=== PATIENT | female | born 1995 | race Caucasian/White ===

== ENCOUNTER 2019-12-22 17:44 | Emergency (ER) | payer OTHER ==
[~2019-12-22] VITALS: Ht 175.3 cm; Wt 156.5 kg
[2019-12-22] MEDS ORDERED: ZESTRIL5 MG (17:52)
== END 2019-12-22 23:43 | disposition home or self-care (01) ==
LOC: ER 17:44
DX: R51 Headache (principal)

== ENCOUNTER 2024-09-01 03:42 | Emergency (ER) | payer OTHER ==
[~2024-09-01] VITALS: Ht 152.4 cm; Wt 81.6 kg
[~2024-09-01 03:42] MED LIST: ZESTRIL5 MG
[2024-09-01 09:36] LABS: HEMATOCRIT 33.3 % (36.0-45.00); HEMOGLOBIN 11.2 g/dL (12.0-15.00); MEAN CELL VOLUME 81.6 fL (80.00-100.00); MEAN CORPUSCULAR HEMOGLOBIN 27.3 pg (27.00-32.0); MEAN CORPUSCULAR HGB CONC 33.5 g/dl (32.0-36.0); PLATELET COUNT 291 K/uL (150-450); RED BLOOD COUNT 4.08 M/uL (4.00-6.00); RED CELL DISTRIBUTION WIDTH 14.4 % (11.5-14.5)
[2024-09-01 09:42] LABS: PH,URINE 5.5 (5.0-8.0); URINE APPEARANCE Cloudy; URINE BILIRRUBIN Negative (NEGATIVE); URINE BLOOD Negative; URINE COLOR Yellow; URINE GLUCOSE Negative (NEGATIVE); URINE KETONE Trace (NEGATIVE); URINE LEUKOCYTE Large; URINE NITRATE Negative; URINE PROTEIN Trace (NEGATIVE)
[2024-09-01 09:46] LABS: URINE BACTERIA 1639.1 uL (0.0-1933); URINE EPITHELIAL CELLS 64.4 uL (0.0-38.8); URINE RBC 35.5 uL (0.0-20.8); URINE WBC 399.1 uL (0.0-23.2)
[2024-09-01 10:05] LABS: CALCIUM 9.2 mg/dL (8.5-10.1); CREATININE SERUM 0.7 mg/dL (0.55-1.02); GFR 97.6; POTASSIUM 4.14 mEq/L (3.5-5.1)
[2024-09-01 11:23] LABS: URINE CAST 0.15 uL (0.0-1.40)
[2024-09-01] MEDS ORDERED: AZITHROMYCIN 500 MG TABLET PO STA (11:23)
[2024-09-01] MEDS ORDERED: CEFTRIAXONE SODIUM 1,000 MG VIAL IM STA (11:23)
[2024-09-01 11:24] LABS: URINE CRYSTALS MODERATE /HPF
== END 2024-09-01 11:39 | disposition home or self-care (01) ==
LOC: ER 03:44
PROVIDERS: General Practice
DX: A64 Unspecified sexually transmitted disease (principal)